=== PATIENT | female | born 1960 | race Caucasian/White ===

== ENCOUNTER 2016-11-18 18:05 | Emergency (ER) | payer BC | END 2016-11-18 19:48 | disposition home or self-care (01) | LOC: D.ER 18:05 | DX: S05.02XA Injury of conjunctiva and corneal abrasion without foreign body, left eye, initial encounter (principal); X58.XXXA Exposure to other specified factors, initial encounter; Y93.89 Activity, other specified; Y92.89 Other specified places as the place of occurrence of the external cause; G47.30 Sleep apnea, unspecified ==

== ENCOUNTER → 2017-04-12 14:15 | Outpatient (CLI) | payer BC | END | disposition home or self-care (01) | LOC: D.RAD 04-11 10:15 | DX: M54.10 Radiculopathy, site unspecified (principal) ==

== ENCOUNTER → 2018-04-17 19:23 | Outpatient (CLI) | payer BC | END | disposition home or self-care (01) | LOC: D.MAMMO 16:15 | DX: Z12.31 Encounter for screening mammogram for malignant neoplasm of breast (principal) ==

== ENCOUNTER 2018-07-09 05:45 | Day surgery (SDC) | payer BC ==
[2018-07-03 12:08] LABS: HEMATOCRIT 39.1 % (36.0-48.0); HEMOGLOBIN 12.2 g/dL (12-16); MCH 22.5 pg (26.0-34.0); MCHC 31.2 g/dL (31.0-37.0); RBC 5.43 10x6/uL (4.00-5.40); RDW 17.8 % (11.5-14.5); WBC 12.3 10x3/uL (4.8-10.8)
[~2018-07-09] VITALS: Ht 167.6 cm; Wt 69.9 kg
[~2018-07-09 05:45] MED LIST: LEXAPRO10 MG PO; PRAVACHOL40 MG PO; TRULANCE3 MG PO
[2018-07-09] MEDS ORDERED: PREVACID15 MG PO (06:15)
[2018-07-09 06:25] VITALS: BP 149/88; Ht 167.6 cm; Wt 69.9 kg
== END 2018-07-09 10:50 | disposition home or self-care (01) ==
LOC: D.OPS 05:45 → D.PAN 07:30 → D.OPS 08:30
PROVIDERS: Anesthesiology
DX: Z01.419 Encounter for gynecological examination (general) (routine) without abnormal findings (principal)

== ENCOUNTER → 2018-08-21 07:21 | Outpatient (CLI) | payer BC ==
[2018-07-09 06:25] VITALS: BMI 24.9
[~2018-08-21 07:21] MED LIST changes: +NORCO-10 PO; +PREVACID15 MG PO; +REGLAN10 MG PO; +STOOL SOFTENER240 MG PO
--- NOTE | 2018-08-21 08:53 | NUR ---
0815-ENTIRE PROCEDURE WITH DETAILED EXPLANATION GIVEN TO PATIENT WITH ALL QUESTIONS ANSWERED. LEFT NARE PREPPED WITH LIDOCAINE JELLY, PATIENT REFUSED PROCEDURE. DR. PIKE NOTIFIED.
== END | disposition home or self-care (01) ==
LOC: D.OPS 07:21
DX: K21.9 Gastro-esophageal reflux disease without esophagitis (principal); Z01.812 Encounter for preprocedural laboratory examination

== ENCOUNTER 2018-08-26 07:45 | Day surgery (SDC) | payer BC ==
[2018-08-25 10:40] LABS: CALC OSMOLALITY 281 mosm/kg (275-300); CALCIUM 8.7 mg/dL (8.5-10.1); CARBON DIOXIDE 28.7 mmol/L (21.0-32.0); CHLORIDE - SERUM 103 mmol/L (98-107); CREATININE - SERUM 0.7 mg/dL (0.6-1.3); GLUCOSE 120 mg/dL (74-106); SODIUM 142 mmol/L (136-145); UREA NITROGEN 7 mg/dL (7-18); eGFR NON AFRICAN AMERICAN > 90 mL/min (90-120)
[2018-08-25 10:45] LABS: BASOPHILS 0.7 % (0-2); EOSINOPHILS 9.7 % (0-7); HEMATOCRIT 41.7 % (36.0-48.0); HEMOGLOBIN 13.2 g/dL (12-16); IMMATURE GRANULOCYTES 0.4 % (0-5); LYMPHOCYTES 29.6 % (15-50); MCH 22.8 pg (26.0-34.0); MCHC 31.7 g/dL (31.0-37.0); MCV 71.9 fL (80.0-100.0); MEAN PLATELET VOLUME 10.4 fL (7.4-10.4); MONOCYTES 7.1 % (2-11); NEUTROPHILS 52.5 % (40-80); PLATELET COUNT 372 10x3/uL (130-400); RDW 17.5 % (11.5-14.5); WBC 10.9 10x3/uL (4.8-10.8)
[2018-08-25 10:47] LABS: POTASSIUM - SERUM 2.8 mmol/L (3.5-5.1)
--- NOTE | 2018-08-25 11:07 | NUR ---
ERMIAS NOTE: CRITICAL LAB POTASSIUM 2.[address] K[address]NA [address] DR[address] PIKE'S OFFICE @0031. STATES "I WILL TELL DR. PIKE"
[~2018-08-26] VITALS: Ht 91.4 cm; Wt 72.7 kg
[2018-08-26] VITALS (10 sets, daily range): BP systolic 96–139; BP diastolic 54–81; Ht 91.4 cm; Wt 72.7 kg
[~2018-08-26 07:45] MED LIST changes: -NORCO-10 PO; -REGLAN10 MG PO
--- NOTE | 2018-08-26 10:54 | NUR ---
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
--- NOTE | 2018-08-26 13:33 | NUR ---
PT RECIEVED FROM RECOVERY RESTING WITH EYES CLOSED, BUT EASILY AROUSES TO NAME CALLED. O2 @ 3L NC IN PLACE. IV TO LEFT UPPER ARM WITH NS @ 100ML/HR INFUSING VIA PUMP. SITE WITHOUT REDNESS OR EDEMA. 5 LAP SITES C/D/I TO ABDOMEN. VOICES TENDERNESS, BUT DENIES PAIN AT THIS TIME. PT HAS LIMITATIONS DUE TO BEING BORN WITHOUT BILATERAL LOWER EXTREMITIES AND RIGHT LOWER ARM DEFORMITY. 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 ORIENTED TO ROOM, BED CONTROLS AND CL. CL WITHIN REACH. ENCOURAGED TO CALL WITH NEEDS. WILL CONTINUE TO MONITOR.
--- NOTE | 2018-08-26 21:17 | NUR ---
PATIENT RESTING IN BED WITH GUEST AT BEDSIDE AND NO S/S OF DISTRESS. REVIEWED CNC MACHINIST EDUCATION WITH PATIENT. ADMINISTERED MEDS PER ORDERS. PATIENT DENIES OTHER NEEDS AT THIS TIME. BED IN LOWEST POSITION AND CALL LIGHT WITHIN REACH. ENCOURAGED THE PATIENT TO CALL IF SHE HAS NEEDS. WILL CONTINUE TO MONITOR.
--- NOTE | 2018-08-27 01:40 | NUR ---
ANSWERED CALL LIGHT. IV PUMP ALARM. A/OX4. FAMILY AT BEDSIDE. DENEIES NEEDS. WILL CONTINUE POC.
[2018-08-27 01:58] VITALS: BP 112/72
[2018-08-27 04:55] LABS: BASOPHILS 0 % (0-2); EOSINOPHILS 0 % (0-7); HEMATOCRIT 35.6 % (36.0-48.0); HEMOGLOBIN 11.3 g/dL (12-16); IMMATURE GRANULOCYTES 0.2 % (0-5); LYMPHOCYTES 14.3 % (15-50); MCHC 31.7 g/dL (31.0-37.0); MCV 72.5 fL (80.0-100.0); MEAN PLATELET VOLUME 10.5 fL (7.4-10.4); MONOCYTES 9.3 % (2-11); NEUTROPHILS 76.2 % (40-80); PLATELET COUNT 368 10x3/uL (130-400); RBC 4.91 10x6/uL (4.00-5.40); RDW 17.6 % (11.5-14.5); WBC 12.8 10x3/uL (4.8-10.8)
[2018-08-27 05:28] LABS: CALC OSMOLALITY 279 mosm/kg (275-300); CALCIUM 8.6 mg/dL (8.5-10.1); CARBON DIOXIDE 23.8 mmol/L (21.0-32.0); CHLORIDE - SERUM 106 mmol/L (98-107); GLUCOSE 119 mg/dL (74-106); SODIUM 141 mmol/L (136-145); UREA NITROGEN 7 mg/dL (7-18); eGFR NON AFRICAN AMERICAN > 90 mL/min (90-120)
[2018-08-27 05:46] LABS: CREATININE - SERUM 0.5 mg/dL (0.6-1.3); POTASSIUM - SERUM 4.5 mmol/L (3.5-5.1)
--- NOTE | 2018-08-27 08:05 | NUR ---
PT SITTING UP IN BED WITH FAMILY AT BEDSIDE. NO ACUTE DISTRESS NOTED. O2 @ 3L NC IN PLACE. IV TO LEFT UPPER ARM WITH NS @ 100 ML/HR INFUSING VIA PUMP. SITE WITHOUT REDNESS OR EDEMA. REPORTS PAIN 5/10, [employer] A[employer] SPECIALIST IN USE. ABDOMEN TENDER. DRESSINGS C/D/I TO LAP SITES X 5. DENIES FURTHER NEEDS AT THIS TIME. CL WITHIN REACH. ENCOURAGED TO CALL WITH NEEDS. CONTINUE POC.
[2018-08-27 09:16] VITALS: BP 124/46
[2018-08-27 12:00] VITALS: BP 103/56
[2018-08-27] MEDS ORDERED: NORCO-10 PO (12:48)
[2018-08-27] MEDS ORDERED: REGLAN10 MG PO (12:49)
--- NOTE | 2018-08-27 14:40 | NUR ---
PT DISCHARGE PAPERWORK GIVEN WITH PRESCRIPTIONS AND FOLLOW UP APPOINTMENT. DISCUSSED DIET, EDUCATING REGARDING PUREED DIET. PT DENIES QUESTIONS AT THIS TIME. IV TO LEFT UPPER ARM D/C'D CATH INTACT. PT LANIE WELL
--- NOTE | 2018-08-28 10:44 | OP ---
PATIENT NAME: SHANTELLE RUBI MEDICAL RECORD: [id number] :64 LOCATION:D.OPS ADMISSION DATE: SURGEON: SHAN PIKE MD DATE OF OPERATION: 08/26/2018 PREOPERATIVE DIAGNOSES: 1. Gastroesophageal reflux disease. 2. Hiatal hernia. 3. Congenital extremity deformities. POSTOPERATIVE DIAGNOSES: 1. Gastroesophageal reflux disease. 2. Hiatal hernia. 3. Congenital extremity deformities. PROCEDURE: Laparoscopic Maira fundoplication with hiatal hernia repair. SURGEON: Shan Pike MD STRIPPING SHOVEL OILER: Michelle Rowell APRN REPORT OF PROCEDURE: The patient's abdomen was prepped and draped in sterile fashion. A Veress needle was inserted in the left upper quadrant and the abdomen was insufflated. An 11-mm Visiport trocar was inserted in the midline just below the umbilicus. Once inside, we could see the Veress needle and there was no sign of any injury to bowel or surrounding structures. A 11-mm trocar was placed under direct visualization in the left lateral subcostal region, a 5-mm trocar was placed in the epigastrium, a 5-mm trocar was placed in the right lateral subcostal region and a final 5-mm trocar was placed in the left lateral abdomen. A liver retractor was inserted and the left lobe of the liver was elevated. We began our dissection on the lesser curvature of the stomach, taking down the lesser omentum using Harmonic scalpel. We continued our dissection up to the right side of the right alberta. We removed the peritoneal attachments and dissected into the thoracic cavity. We extended this dissection as far as we could anteriorly and posteriorly. At this point, we went to the greater curvature of the stomach and began taking down our short gastrics using Harmonic scalpel. We continued this dissection up to the left side of the right alberta. During this portion of the dissection, there was a large vessel that was encountered that was bleeding. This was clipped proximally and distally. As the case went on, we could see that the superior lobe of the spleen had kind of darkly demarcated. The inferior aspect of the spleen appeared to be a normal in appearance and viable. As we continued the dissection up into the thoracic cavity, we eventually were able to dissect all of the surrounding tissues off of the esophagus as we went to probably the mid thoracic cavity. There was a lot inflammatory changes in the chest. Care was taken to assure we did not injure the patient's esophagus. We eventually were able to free up all of these adhesions as far as we could go. At this point, about a centimeter of the distal esophagus would rest easily in the patient's abdominal cavity. The esophageal hiatus was then reapproximated inferiorly using interrupted 0 polydeks times 3. There was noted to be good approximation of the tissue around the esophagus. We then performed a 360-degree posterior wrap of the fundus of the stomach around the inferior aspect of the esophagus. This was sutured into place with 0 polydeks times 3 with the top and the bottom suture incorporating a bite of the esophagus. At the conclusion of the case, there was a little bit of blood in the left upper quadrant, which was suctioned out. There was some OPERATIVE REPORT [id number] SHANTELLE RUBI bleeding from a section in the omentum and this was treated with Harmonic scalpel. Further evaluation showed no evidence of any further bleeding at this point. We then removed the liver retractor. The 11-mm trocar site fascias were closed with interrupted 0 Vicryls using a Yahir-Kendall suture passer device. The ports and insufflation were then removed. The wounds were then infused with a total of 10 mL of 0.25% Marcaine with epinephrine and closed with subcutaneous 5-0 Monocryl. COMPLICATIONS: None. CONDITION: Stable. ANESTHESIA: General endotracheal and local. BLOOD LOSS: 50 mL. TRANSINT:[id number] Voice Confirmation ID: [id number] DOCUMENT ID: [id number] SHAN IPKE MD at 1044 CC: RIZWANA GIANG MD and MAC BONILLA MD [id number] DICTATION DATE: 08/26/18 1226 GROCERY CLERK CHECKING: 08/26/18 1400 [facility] 08/27/18 [place] [id number] [place] [id number]
== END 2018-08-27 16:17 | disposition home or self-care (01) ==
LOC: D.MS 07:45 → D.OPS 07:45 → D.PAN 09:00 → D.OPS 09:45 → D.MS 13:19 → D.OPS 08-27 16:17
PROVIDERS: Surgery
DX: K44.9 Diaphragmatic hernia without obstruction or gangrene (principal); K21.9 Gastro-esophageal reflux disease without esophagitis

== ENCOUNTER 2019-02-10 10:00 | Outpatient (CLI) | payer BC ==
[2018-08-26 15:42] VITALS: BMI 87.0
[~2019-02-10 10:00] MED LIST changes: +NORCO-10 PO; +REGLAN10 MG PO
== END 2019-02-10 11:00 | disposition home or self-care (01) ==
LOC: D.MAMMO 10:00
PROVIDERS: ATTEND Family Medicine
DX: Z12.31 Encounter for screening mammogram for malignant neoplasm of breast (principal)

== ENCOUNTER 2021-01-17 13:30 | Outpatient (CLI) | payer BC ==
[2020-06-18 17:39] VITALS: BMI 26.6
[~2021-01-17 13:30] MED LIST changes: +BACTRIM 400-801 TAB PO; +FLOMAX0.4 MG PO; +HYDROCODON-ACE1 EA10 PO; +ZOFRAN ODT4 MG/UDTAB PO
== END 2021-01-17 23:59 ==
LOC: D.MAMMO 13:30
PROVIDERS: ATTEND Family Medicine
DX: Z12.31 Encounter for screening mammogram for malignant neoplasm of breast (principal)